=== PATIENT | male | born 1985 | race Two or more races ===

== ENCOUNTER 2025-05-29 14:42 | Emergency (ER) | payer MEDICAID, OTHER ==
[~2025-05-29] VITALS: Ht 177.8 cm; Wt 96.6 kg
--- NOTE | 2025-05-29 15:22 | ED.PDOC ---
HPI (NEURO) HPI Comments 40-year-old male presents here with 3 days of left-sided weakness. He states his left face is numb. Patient has not seen anyone for this. Denies any recent cough cold runny nose fever or chills. Reports positive slurred speech. And facial droop. No history of previous stroke. Chief Complaint: Face pain Time Seen by MD: 14:50 Reviewed Notes: Nurses Notes, Medications, Allergies Information Source: Patient Mode of Arrival: Ambulatory Severity: Moderate Timing: Days Duration: Since onset Prehospital treatment: None Weakness Location: Facial (left side ) Onset: At rest Circumstances: Spontaneous Symptoms: Slurred speech, Other (left facial droop ) History of: None Modifying factors: Nothing Associated Signs and Symptoms: Other (slurred speech) Past Medical History PAST MEDICAL HISTORY: Denies Past Medical History (Other): Alcoholic Surgical History: Denies all surgeries Family History Family History: Unknown Social History Smoker: Non-Smoker Alcohol: Occasionally Drugs: Denies Drug Use Lives In: Home Constitutional: denies: chills, diaphoresis, fatigue, fever, malaise, sweats, weakness, others EENTM: denies: blurred vision, double vision, ear bleeding, ear discharge, ear drainage, ear pain, ear ringing, eye pain, eye redness, hearing loss, mouth pain, mouth swelling, nasal discharge, nose bleeding, nose congestion, nose pain, photophobia, tearing, throat pain, throat swelling, voice changes, others Respiratory: denies: cough, hemoptysis, orthopnea, SOB at rest, shortness of breath, SOB with excertion, stridor, wheezing, others Cardiovascular: denies: chest pain, dizzy spells, diaphoresis, Dyspnea on exertion, edema, irregular heart beat, left arm pain, lightheadedness, palpitations, PND, syncope, others Gastrointestinal: denies: abdomen distended, abdominal pain, blood streaked bowels, constipated, diarrhea, dysphagia, difficulty swallowing, hematemesis, melena, nausea, poor appetite, poor fluid intake, rectal bleeding, rectal pain, vomiting, others Genitourinary: denies: burning, dysuria, flank pain, frequency, hematuria, incontinence, penile discharge, penile sore, pain, testicle pain, testicle swelling, urgency, others Neurological: reports: others (left sided facial droop ); denies: dizziness, fainting, headache, left sided numbness, left sided weakness, numbness, paresthesia, pre-existing deficit, right sided numbness, right sided weakness, seizure, speech problems, tingling, tremors, weakness Musculoskeletal: denies: back pain, gout, joint pain, joint swelling, muscle pain, muscle stiffness, neck pain, others Integumetry: denies: bruises, change in color, change in hair/nails, dryness, laceration, lesions, lumps, rash, wounds, others Allergic/Immunocompromised: denies: Difficulty Healing, Frequent Infections, Hives, Itching, others Hematologic/Lymphatic: denies: anemia, blood clots, easy bleeding, easy bruising, swollen glands, others Endocrine: denies: excessive hunger, excessive sweating, excessive thirst, excessive urination, flushing, intolerance to cold, intolerance to heat, unexplained weight gain, unexplained weight loss, others Psychiatric: denies: anxiety, bipolar disorder, depression, hopeless, panic disorder, schizophrenia, sleepless, suicidal, others All Other Systems: Reviewed and Negative Physical Exam General Appearance: Mild Distress, Normal HEENT: Normal ENT Inspection, Pharynx Normal, TMs Normal Neck: Full Range of Motion, Non-Tender, Normal, Normal Inspection Respiratory: Chest Non-Tender, Lungs Clear, No Accessory Muscle Use, No Respiratory Distress, Normal Breath Sounds Cardiovascular: No Edema, No JVD, No Murmur, No Gallop, Normal Peripheral Pulses, Regular Rate/Rhythm Breast Exam: Deferred Gastrointestinal: No Organomegaly, Non Tender, No Pulsatile Mass, Normal Bowel Sounds, Soft Genitalia: Deferred Pelvic: Deferred Rectal: Deferred Extremities: No calf tenderness, Normal capillary refill, Normal inspection, Normal range of motion, Non-tender, No pedal edema Musculoskeletal : Apperance: Normal Neurologic: Alert, No Motor Deficits, Normal Affect, Normal Mood, No Sensory Deficits, Speech Problem, Other (Left facial droop left ptosis of the eye, unable to close the left eye shut, unable to furrow the left side of his upper face. 5/5 strength bilateral upper and lower extremities) Cerebellar Function: Normal Reflexes: Normal Skin: Dry, Normal Color, Warm Lymphatic: No Adenopathy Was a procedure done? Was a procedure done?: No Differential Diagnosis (SZ) Seizure: Other CVA: Other General Weakness: Other Headache: Other (Stroke TIA Augustine's palsy alcohol abuse, drug overdose) X-Ray, Labs, Meds, VS Vital Signs Date Time Temp Pulse Resp B/P (MAP) Pulse Ox O2 Delivery O2 Flow Rate FiO2 05/29/25 14:46 98.1 113 18 124/91 98 98.1 [facility] [id number] [place] [address] Ph: [phone] DIAGNOSTIC IMAGING Diagnostic Imaging Report : [id number] Signed PATIENT: VICKIE GUAMANCCT: [id number] UNIT: [id number] : 1985 LOC: ER ROOM / BED: / AGE / SEX: 40 / M ADM STATUS: REG ER SERVICE 1452 ORDERING PHYSICIAN: OMAYRA ALONSO MD PROCEDURE(s): HWOCT - HEAD WITHOUT CONTRAST REASON: RIGHT FACIAL DROOP ORDER NUMBER(s): [id number], ACCESSION NUMBER(s): [id number] CT HEAD WITHOUT CONTRAST Indication: RIGHT FACIAL DROOP EXAM DATE: 05/29/2025 02:52 PM COMPARISON: None TECHNIQUE: CT of the head without intravenous contrast. RADIATION DOSE: CTDIvol: 65 mGy, DLP: 1133 mGy*cm FINDINGS: There is no intracranial hemorrhage. There is no extra-axial fluid, mass, mass effect or midline shift. The ventricles are midline and normal in size. Basilar cisterns are patent. Mcgarry-white differentiation is maintained. There is mucosal thickening of the maxillary sinuses bilaterally. A 2.2 cm right maxillary sinus mucosal retention cyst/polyp Imaged portion of the orbits are unremarkable. IMPRESSION: No intracranial hemorrhage or mass effect. Paranasal sinus disease. ATED BY: THADDEUS MADDOX MD DICTATED DATE/TIME: 05/29/251524 SIGNED BY: THADDEUS MADDOX MD SIGNED DATE/TIME: 05/29/251524 CC: I was asked to immediately see the patient upon his arrival to the ER. As there was concern for stroke. At this time patient has significant left facial droop. However I believe these symptoms are more consistent with Augustine's palsy. He has 5/5 strength in upper and lower extremity on my examination. He is unable to furrow his left eyebrow, unable to close his left eye. At this time a CT scan of the brain was performed for typical procedure which is unremarkable. At this time I will be discharging him home with eye patch, ophthalmic ointment, prednisone and valacyclovir. Advised him it was very important he wears eye patch as this can lead to eye dryness. Patient agreeable. Advised him to return back to the ER if symptoms worsen or persist. Advised him it can take several weeks for this to improve. Time of 1ST Reevaluation: 15:20 Reevaluation 1ST: Unchanged Patient Education/Counseling: Need For Follow Up Family Education/Counseling: No Family Present Departure 1 Departure Time of Disposition: 15:58 Impression: Primary Impression: Augustine's palsy Disposition: HOME / SELF CARE / HOMELESS Condition: Fair Additional Instructions: It is important to use the eye patch, apply the ophthalmic ointment. It can take several weeks for the symptoms to go away. Please take the medication as prescribed. Return back to the ER if symptoms worsen or persist. e-Prescriptions Prednisone (Prednisone) 20 Mg Tab 20 MG PO DAILY for 5 Days, #15 TAB Prov: OMAYRA ALONSO MD 05/29/25 Valacyclovir Hcl (Valtrex) 1 Gm Tab 1 GM PO TID for 7 Days, #21 TAB Prov: OMAYRA ALONSO MD 05/29/25 Discharged With: Self Critical Care Note Critical Care Time?: No Stability Stability form required: No Heart Score Heart Score: Heart Score Response (Comments) Value History N/A 0 EKG N/A 0 Age N/A 0 Risk Factors N/A 0 Troponin N/A 0 Total 0 I personally scribed for OMAYRA ALONSO MD ([email or web address]) on 05/29/25 at 15:22. Electronically submitted by Guru Ho ([email or web address]). I personally scribed for OMAYRA ALONSO MD ([email or web address]) on 05/29/25 at 15:39. Electronically submitted by Guru Ho ([email or web address]). OMAYRA ALONSO MD May 29, 2025 15:22
--- NOTE | 2025-05-29 15:24 | DVH ---
CT HEAD WITHOUT CONTRAST Indication: RIGHT FACIAL DROOP EXAM DATE: 05/29/2025 02:52 PM COMPARISON: None TECHNIQUE: CT of the head without intravenous contrast. RADIATION DOSE: CTDIvol: 65 mGy, DLP: 1133 mGy*cm FINDINGS: There is no intracranial hemorrhage. There is no extra-axial fluid, mass, mass effect or midline shif t. The ventricles are midline and normal in size. Basilar cisterns are patent. Mcgarry-white differentia tion is maintained. There is mucosal thickening of the maxillary sinuses bilaterally. A 2.2 cm right maxillary sinus mu cosal retention cyst/polyp Imaged portion of the orbits are unremarkable. IMPRESSION: No intracranial hemorrhage or mass effect. Paranasal sinus disease.
[2025-05-29] MEDS ORDERED: VALA1TAB PO (16:02)
[2025-05-29] MEDS ORDERED: PRED20TA2 PO (16:02)
[2025-05-29 16:15] VITALS: BP 121/84; PULSE 96; RESP 18; TEMP 97.9; O2SAT 98
== END 2025-05-29 16:15 | disposition home or self-care (01) ==
LOC: ER 14:42
DX: G51.0 Bell's palsy (principal); F10.90 Alcohol use, unspecified, uncomplicated; Y90.9 Presence of alcohol in blood, level not specified
CPT/HCPCS: 70450

== ENCOUNTER 2025-06-09 10:49 | Emergency (ER) | payer MEDICAID ==
[~2025-06-09] VITALS: Ht 180.3 cm; Wt 97.2 kg
[~2025-06-09 10:49] MED LIST: PRED20TA2 PO; VALA1TAB PO
[2025-06-09 10:52] VITALS: TEMP 97.8
[2025-06-09 11:24] VITALS: BP 146/97; PULSE 84; RESP 18; O2SAT 97
[2025-06-09] MEDS ORDERED: AUG875T PO (11:24)
[2025-06-09] MEDS ORDERED: PRED20TA2 PO (11:24)
--- NOTE | 2025-06-09 11:29 | ED.PDOC ---
History of Present Illness HPI Comments A 40 YEAR OLD MALE PRESENTS TO THE ED WITH COMPLAINT OF FACE PAIN. PATIENT REPORTS ON RECENTLY BEING DIAGNOSED WITH AUGUSTINE'S PALSY ON 05/30/2025 AND HAS RECENTLY BEEN HAVING FACE PAIN. PATIENT STATES THAT HE HAS BEEN HAVING LEFT EAR PAIN WHICH RADIATES DOWN TO THE JAW FOR 2 DAYS AND QUOTES ALMOST LIKE A TOOTH PAIN WHICH GOES BEHIND MY EAR. PATIENT DENIES FEVER, CHILLS, SHORTNESS OF BREATH, CHEST PAIN, ABDOMINAL PAIN, NAUSEA, VOMITING, HEADACHE, OR OTHER COMPLAINTS. NO OTHER SYMPTOMS OR MODIFYING FACTORS AT THIS TIME. PATIENT IS ALERT, ORIENTED X 4, AND HAS STEADY GAIT. Chief Complaint: Face pain Time Seen by MD: 10:53 Reviewed Notes: Nurses Notes, Medications, Allergies Allergies: Coded Allergies: NO KNOWN ALLERGIES (Unverified , 05/29/25) Home Meds Active Scripts Prednisone (Prednisone) 20 Mg Tab, 60 MG PO DAILY, #21 TAB Prov:SUHA SAINZ 06/09/25 Amoxicillin & Pot Clavulanate (AUGMENTIN TABLET) 875 Mg Tb, 875 MG PO BID for 10 Days, #20 TAB Prov:SUHA SAINZ 06/09/25 Prednisone (Prednisone) 20 Mg Tab, 20 MG PO DAILY for 5 Days, #15 TAB Prov:OMAYRA ALONSO MD 05/29/25 Valacyclovir Hcl (Valtrex) 1 Gm Tab, 1 GM PO TID for 7 Days, #21 TAB Prov:OMAYRA ALONSO MD 05/29/25 Information Source: Patient Mode of Arrival: Ambulatory Severity: Moderate Timing: Days Duration: Since onset, Days Prehospital treatment: None Medication Refill: For: Other (LEFT EAR PAIN AND NECK PAIN ) Past Medical History PAST MEDICAL HISTORY: Denies Surgical History: Denies all surgeries Family History Family History: Reviewed,noncontributory to illness, Unknown Social History Smoker: Non-Smoker Alcohol: Occasionally Drugs: Denies Drug Use Lives In: Home Constitutional: denies: chills, diaphoresis, fatigue, fever, malaise, sweats, weakness, others EENTM: reports: ear pain, ear ringing; denies: blurred vision, double vision, ear bleeding, ear discharge, ear drainage, eye pain, eye redness, hearing loss, mouth pain, mouth swelling, nasal discharge, nose bleeding, nose congestion, nose pain, photophobia, tearing, throat pain, throat swelling, voice changes, others Respiratory: denies: cough, hemoptysis, orthopnea, SOB at rest, shortness of breath, SOB with excertion, stridor, wheezing, others Cardiovascular: denies: chest pain, dizzy spells, diaphoresis, Dyspnea on exertion, edema, irregular heart beat, left arm pain, lightheadedness, palpitations, PND, syncope, others Gastrointestinal: denies: abdomen distended, abdominal pain, blood streaked bowels, constipated, diarrhea, dysphagia, difficulty swallowing, hematemesis, melena, nausea, poor appetite, poor fluid intake, rectal bleeding, rectal pain, vomiting, others Genitourinary: denies: burning, dysuria, flank pain, frequency, hematuria, incontinence, penile discharge, penile sore, pain, testicle pain, testicle swelling, urgency, others Neurological: denies: dizziness, fainting, headache, left sided numbness, left sided weakness, numbness, paresthesia, pre-existing deficit, right sided numbness, right sided weakness, seizure, speech problems, tingling, tremors, weakness, others Musculoskeletal: denies: back pain, gout, joint pain, joint swelling, muscle pain, muscle stiffness, neck pain, others Integumetry: denies: bruises, change in color, change in hair/nails, dryness, laceration, lesions, lumps, rash, wounds, others Allergic/Immunocompromised: denies: Difficulty Healing, Frequent Infections, Hives, Itching, others Hematologic/Lymphatic: denies: anemia, blood clots, easy bleeding, easy bruising, swollen glands, others Endocrine: denies: excessive hunger, excessive sweating, excessive thirst, excessive urination, flushing, intolerance to cold, intolerance to heat, unexplained weight gain, unexplained weight loss, others Psychiatric: denies: anxiety, bipolar disorder, depression, hopeless, panic dis order, schizophrenia, sleepless, suicidal, others All Other Systems: Reviewed and Negative Physical Exam General Appearance: No Apparent Distress, Obese HEENT: PERRL/EOMI, Pharynx Normal, TM Abnormal (L) (ERYTHEMA AND DULL WITH EFFUSION OF LEFT TM. ) Neck: Full Range of Motion, Lymphadenopathy (L) (TENDERNESS LEFT UPPER CERVICAL LYMPH NPODE, NO REDNESS AND SWELLING. ), Non-Tender, Normal, Normal Inspection Respiratory: Chest Non-Tender, Lungs Clear, No Accessory Muscle Use, No Respiratory Distress, Normal Breath Sounds Cardiovascular: No Edema, No JVD, No Murmur, No Gallop, Normal Peripheral Pulses, Regular Rate/Rhythm Breast Exam: Deferred Gastrointestinal: No Organomegaly, Non Tender, No Pulsatile Mass, Normal Bowel Sounds, Soft Genitalia: Deferred Pelvic: Deferred Rectal: Deferred Extremities: No calf tenderness, Normal capillary refill, Normal inspection, Normal range of motion, Non-tender, No pedal edema Musculoskeletal : Apperance: Normal Neurologic: Alert, geometry teacher II-XII nml as Tested, No Motor Deficits, Normal Affect, Normal Mood, No Sensory Deficits Cerebellar Function: Normal Reflexes: Normal Skin: Dry, Normal Color, Warm Peripheral Pulses: 2+ carotid (R), 2+ carotid (L) Lymphatic: Cervical Adenopathy (L) Was a procedure done? Was a procedure done?: No Differential Dx Considerations may include: AOM OF LEFT EAR, CERVICAL ADENITIS, HX OF AUGUSTINE'S PALSY X-Ray, Labs, Meds, VS Vital Signs Date Time Temp Pulse Resp B/P (MAP) Pulse Ox O2 Delivery O2 Flow Rate FiO2 06/09/25 11:24 84 18 97 Room Air 06/09/25 11:24 84 18 146/97 (113) 97 06/09/25 10:52 97.8 86 18 150/91 98 97.8 X-Ray, Labs, Meds, VS Comment EXTERNAL MEDICAL RECORDS REVIEWED: [NONE] INDEPENDENT HISTORIANS: [NONE] SOCIAL DETERMINANTS OF HEALTH: [NONE] LABS ORDERED: NONE REVIEWED AND INTERPRETED RESULTS: NONE IMAGING ORDERED: NONE TREATMENTS ORDERED: NONE PROCEDURES PERFORMED: NONE CRITICAL CARE TIME: NONE I HAVE DISCUSSED THE PATIENT WITH THE ATTENDING PHYSICIAN DR. PATEL AND HE AGREES WITH THE PATIENT'S PLAN OF CARE AND DISPOSITION. BASED ON HISTORY OF PRESENT ILLNESS, AND PHYSICAL EXAM, PATIENT WILL BE DISCHARGED HOME. DISCUSSED PLAN FOR DISCHARGE HOME WITH RX [AUGMENTIN AND PREDNISONE]. MEDICATION WARNINGS GIVEN. SHARED DECISION MAKING: DISCUSSED WITH PATIENT THAT THEIR WORKUP WAS NORMAL. PATIENT INSTRUCTED TO FOLLOW UP WITH PRIMARY CARE PROVIDER IN 1-2 DAYS FOR RE- EVALUATION OF SYMPTOMS. PATIENT VERBALIZES UNDERSTANDING TO RETURN TO ED FOR NEW OR WORSENING SYMPTOMS OR IF FOLLOW UP WITH PCP CANNOT BE OBTAINED. PATIENT FEELS COMFORTABLE GOING HOME AT THIS TIME. ALL QUESTIONS ADDRESSED AT TIME OF DISCHARGE. Time of 1ST Reevaluation: 11:28 Reevaluation 1ST: Improved Patient Education/Counseling: Diagnosis, Treatment, Need For Follow Up Family Education/Counseling: Diagnosis, Treatment, No Family Present Medical Screening: No EMC Exist At This Time SEPSIS Sepsis Screen Date sepsis recognized/suspect: Jun 09, 2025 Time Sepsis recognized/suspect: 1052 Recent Procedure: No On Antibiotic Therapy: No Respiratory Rate >20: No Heart Rate >90: No Temp<36 C (96.8 F) or >38.3 C: No SBP <90 or MAP <65 mmHG: No New Acute Mental Status Change: No Is the patient on CPAP, BIPAP,: No Vital Signs Date Time Temp Pulse Resp B/P (MAP) Pulse Ox O2 Delivery O2 Flow Rate FiO2 06/09/25 11:24 84 18 97 Room Air 06/09/25 11:24 84 18 146/97 (113) 97 06/09/25 10:52 97.8 86 18 150/91 98 97.8 Departure 1 Departure Time of Disposition: 11:35 Impression: Primary Impression: Acute otitis media with effusion of left ear Additional Impressions: Acute cervical adenitis History of Augustine's palsy Disposition: 01 HOME / SELF CARE / HOMELESS Condition: Stable Additional Instructions: FOLLOW-UP WITH PCP IN 1 TO 2 DAYS. TAKE MEDICATIONS PRESCRIBED. RETURN TO ED FOR ANY NEW OR WORSENING SYMPTOMS. e-Prescriptions Prednisone (Prednisone) 20 Mg Tab 60 MG PO DAILY, #21 TAB Prov: SUHA SAINZ 06/09/25 Amoxicillin & Pot Clavulanate (AUGMENTIN TABLET) 875 Mg Tb 875 MG PO BID for 10 Days, #20 TAB Prov: SUHA SAINZ 06/09/25 Discharged With: Self Critical Care Note Critical Care Time?: No Stability Stability form required: No I personally scribed for SUHA SAINZ ([email or web address]) on 06/09/25 at 11:32. Electronically submitted by Jae Navarro ([email or web address]). SUHA SAINZ Jun 09, 2025 11:29
== END 2025-06-09 11:37 | disposition home or self-care (01) ==
LOC: ER 10:51
DX: H65.192 Other acute nonsuppurative otitis media, left ear (principal); L04.0 Acute lymphadenitis of face, head and neck; F10.90 Alcohol use, unspecified, uncomplicated; Z79.624 Long term (current) use of inhibitors of nucleotide synthesis; Z79.52 Long term (current) use of systemic steroids; Z79.899 Other long term (current) drug therapy; Y90.9 Presence of alcohol in blood, level not specified